=== PATIENT | female | born 1985 | race Two or more races ===

== ENCOUNTER 2020-03-12 11:30 | Emergency (ER) | payer SELFPAY ==
--- NOTE | 2020-03-12 12:30 | ER Document Report ---
ED Medical Screen (RME) - General Chief Complaint: Abdominal Pain Stated Complaint: ABDOMINAL PAIN Time Seen by Provider: 03/12/20 12:20 Mode of Arrival: Wheelchair Information source: Patient Notes: 4-year-old female presented to ED for complaint of "uterus pain x6 months. She states now her ovaries are hurting.. She states her last menstrual period was February 05. She states she is not having any vaginal bleeding at this time. She states she did have a ovarian cyst 3 years ago. She states she does not have any medical or surgical history except for the ovarian cyst. She does not smoke drink or use any illicit drugs. 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 I have greeted and performed a rapid initial assessment of this patient. A comprehensive ED assessment and evaluation of the patient, analysis of test results and completion of medical decision making process will be conducted by an additional ED providers. Physical Exam - Vital signs Vitals: Temp Pulse Resp BP Pulse Ox 97.9 F 72 16 127/62 H 99 03/12/20 11:40 03/12/20 11:40 03/12/20 11:40 03/12/20 11:40 03/12/20 11:40 Course - Vital Signs Vital signs: Temp Pulse Resp BP Pulse Ox 97.9 F 72 16 127/62 H 99 03/12/20 11:40 03/12/20 11:40 03/12/20 11:40 03/12/20 11:40 03/12/20 11:40
[2020-03-12 13:34] LABS: ABSOLUTE EOSINOPHILS # (AUTO) 0.1 10^3/uL (0.0-0.6); ABSOLUTE LYMPHOCYTES (AUTO) 1.9 10^3/uL (0.5-4.7); HEMATOCRIT 42.2 % (36.0-47.0); TOTAL CELLS COUNTED % (AUTO) 100 %
[2020-03-12 13:39] LABS: ABSOLUTE MONOCYTES (AUTO) 0.9 10^3/uL (0.1-1.4); ABSOLUTE NEUT (AUTO) 9.2 10^3/uL (1.7-8.2); BASOPHILS % (AUTO) 0.2 % (0-2); EOSINOPHILS % (AUTO) 0.6 % (0-6); HEMOGLOBIN 14.5 g/dL (12.0-15.5); MEAN CORPUSCULAR HEMOGLOBIN 30.7 pg (27.0-33.4); MEAN CORPUSCULAR HGB CONC 34.3 g/dL (32.0-36.0); MEAN CORPUSCULAR VOLUME 89 fl (80-97); MONOCYTES % (AUTO) 7.1 % (3-13); RED BLOOD COUNT 4.72 10^6/uL (3.72-5.28); RED CELL DISTRIBUTION WIDTH 14.9 % (11.5-14.0); SEGMENTED NEUTROPHILS % (AUTO) 76.1 % (42-78); WHITE BLOOD COUNT 12.1 10^3/uL (4.0-10.5)
[2020-03-12 13:46] LABS: ALBUMIN 5.1 g/dL (3.5-5.0); ALKALINE PHOSPHATASE 72 U/L (38-126); ANION GAP 14 (5-19); ASPARTATE AMINO TRANSFERASE 41 U/L (14-36); BILIRUBIN,DIRECT 0.1 mg/dL (0.0-0.4); BILIRUBIN,TOTAL 1.4 mg/dL (0.2-1.3); BLOOD UREA NITROGEN 8 mg/dL (7-20); CALCIUM 10.3 mg/dL (8.4-10.2); CARBON DIOXIDE 20 mmol/L (22-30); CHLORIDE 104 mmol/L (98-107); GLUCOSE 104 mg/dL (75-110); POTASSIUM 3.8 mmol/L (3.6-5.0); TOTAL PROTEIN 8.5 g/dL (6.3-8.2)
[2020-03-12 14:05] LABS: PLATELET COUNT 249 10^3/uL (150-450)
[2020-03-12 14:12] LABS: APPEARANCE,URINE CLOUDY; BILIRUBIN,URINE NEGATIVE (NEGATIVE); COLOR,URINE YELLOW; GLUCOSE, URINE NEGATIVE (NEGATIVE); KETONES,URINE NEGATIVE (NEGATIVE); LEUKOCYTE ESTERASE,URINE SMALL (NEGATIVE); NITRITE,URINE NEGATIVE (NEGATIVE); PROTEIN,URINE NEGATIVE (NEGATIVE); URINE SPECIFIC GRAVITY 1.013; UROBILINOGEN,URINE NEGATIVE mg/dL (<2.0)
--- NOTE | 2020-03-12 15:30 | RADIOLOGY REPORT (SQ) ---
EXAM DESCRIPTION: U/S OB TRANSVAGINAL W/O DOP IMAGES COMPLETED DATE/TIME: 03/12/2020 3:05 pm REASON FOR STUDY: pelvic pain lmp Feb 05 COMPARISON: None. TECHNIQUE: Transvaginal static and realtime grayscale images acquired of the pelvis. Additional tomás cted spectral and color Doppler images recorded. All images stored on PACs. [facility],740 CLINICAL DATES: LMP 02/06/2020 5 weeks 0 days LIMITATIONS: None. FINDINGS: FETUS: Single Living intrauterine . ULTRASOUND EGA: 5 weeks 5 days by gestational sac size. ULTRASOUND DAVID: 11/07/2020 EFW: Not applicable less than 20 weeks. CRL: pole is not yet seen. FHR: pole is not yet seen. Beats per minute. SURVEY: pole is not yet seen. AMNIOTIC FLUID: Adequate amount. PLACENTA: Not yet developed due to early gestation. SUBCHORIONIC BLEED: No SIZE OF BLEED: Not applicable. UTERUS: No masses. No anomalies. CERVICAL LENGTH: 2.4 cm. Closed. RIGHT ADNEXA: Ovary with normal vascular flow. 3.1 x 3.7 x 2.6 cm. There is a 22 x 25 x 19 mm corpu s luteum. Small amount of free fluid in the right adnexa and in the posterior cul de sac. No adnexal masses. LEFT ADNEXA: Normal ovary with normal vascular flow. 2.9 x 1.8 x 1.6 cm. No adnexal free fluid. No adnexal masses. FREE FLUID: None. OTHER: No other significant finding. IMPRESSION: Intrauterine gestation based upon presence of the gestational sac. pole is not ye t seen. Follow-up as clinically indicated Gestational age 5 weeks 5 days Trimester of : First trimester - 0 to 13 weeks. TECHNICAL DOCUMENTATION: JOB ID: [id number] 2010 [employer]- All Rights Reserved rev-10/26 Reading location - IP/workstation name: [email or web address]
--- NOTE | 2020-03-12 15:46 | ER Document Report ---
ED General - General Chief Complaint: Abdominal Pain Stated Complaint: ABDOMINAL PAIN Time Seen by Provider: 03/12/20 12:20 Mode of Arrival: Wheelchair Information source: Patient Notes: Patient is a 34-year-old female presenting to the emergency department chief complaint of abdominal pain. All information for history of present illness and review of systems was obtained after getting a hold of a paperboard machine operator on the viscose department worker laptop. Patient reports that she has had abdominal pain off and on for about 3 months. Patient denies nausea vomiting travel history trauma history. Patient has no medical issues and denies drugs alcohol or tobacco. When informed that she was the patient seemed quite surprised about same. She states that she has had 1 prior and has 1 living child. TRAVEL OUTSIDE OF THE [place] IN LAST 30 DAYS: No - HPI Onset: Other - Several months Onset/Duration: Intermittent Quality of pain: Achy Severity: Mild Pain Level: 1 Associated symptoms: None Exacerbated by: Denies Relieved by: Denies Similar symptoms previously: No Recently seen / treated by doctor: No - Related Data Allergies/Adverse Reactions: No Known Allergies Allergy (Unverified 03/12/20 12:30) Past Medical History - General Information source: Patient - Social History Smoking Status: Never Smoker Chew tobacco use (# tins/day): No Frequency of alcohol use: None Drug Abuse: None Lives with: Family Family History: None Patient has suicidal ideation: No Patient has homicidal ideation: No Review of Systems - Review of Systems Notes: REVIEW OF SYSTEMS: CONSTITUTIONAL : Denies fever, chills, or sweats. Denies recent illness. EENT: Denies eye, ear, throat, or mouth pain or symptoms. Denies nasal or sinus congestion. CARDIOVASCULAR: Denies chest pain. RESPIRATORY: Denies cough, cold, or chest congestion. Denies shortness of breath, difficulty breathing, or wheezing. GASTROINTESTINAL: Per HPI GENITOURINARY: Denies difficulty urinating, painful urination, burning, fr equency, or blood in urine. MUSCULOSKELETAL: Denies neck or back pain or joint pain or swelling. SKIN: Denies rash or skin lesions. HEMATOLOGIC : Denies easy bruising or bleeding. NEUROLOGICAL: Denies altered mental status or loss of consciousness. Denies headache. Denies weakness or paralysis or loss of use of either side. Denies problems with gait or speech. Denies sensory or motor loss. PSYCHIATRIC: Denies suicidal or homicidal ideations 10 Systems are negative unless otherwise specified above Physical Exam - Vital signs Vitals: Temp Pulse Resp BP Pulse Ox 97.9 F 72 16 127/62 H 99 03/12/20 11:40 03/12/20 11:40 03/12/20 11:40 03/12/20 11:40 03/12/20 11:40 - Notes Notes: PHYSICAL EXAMINATION: GENERAL: Well-appearing, well-nourished and in no acute distress. HEAD: Atraumatic, normocephalic. EYES: Pupils equal round and reactive to light, extraocular movements intact, sclera anicteric, conjunctiva are normal. ENT: nares patent, oropharynx clear without exudates. Moist mucous membranes. NECK: Normal range of motion, supple without lymphadenopathy, no appreciable JVD LUNGS: Lungs clear to auscultation bilaterally and equal. No wheezes rales or rhonchi. HEART: Regular rate and rhythm without murmurs ABDOMEN: Soft, mild tenderness no significant guarding no masses. EXTREMITIES: Active full range of motion, no pitting or edema. No cyanosis. 2+ pulses x4 NEUROLOGICAL: No focal neurological deficits. Moves all extremities spontaneously and on command. SKIN: Warm, Dry, and intact. Normal turgor, no rashes or lesions noted. Course - Re-evaluation Re-evalutation: 03/12/20 18:03 With the assistance of the viscose department worker I was able to speak with the patient inform her of her laboratory and radiologic results. Patient is also found to have a urinary tract infection and will be started on antibiotics per RECRUITER ACCOUNT MANAGER protocol. I discussed with the patient the need to follow-up with RECRUITER ACCOUNT MANAGER and recommend that be accomplished this next week. Patient is agreeable with care plan will be discharged home in stable condition. - Vital Signs Vital signs: Temp Pulse Resp BP Pulse Ox 97.9 F 75 16 124/70 100 03/12/20 11:40 03/12/20 17:06 03/12/20 17:06 03/12/20 17:06 03/12/20 17:06 - Laboratory Result Diagrams: 03/12/20 13:09 03/12/20 13:09 Laboratory results interpreted by me: 03/12/20 03/12/20 03/12/20 13:09 13:09 13:09 WBC 12.1 H RDW 14.9 H Absolute Neuts (auto) 9.2 H Carbon Dioxide 20 L Calcium 10.3 H Total Bilirubin 1.4 H AST 41 H ALT 50 H Total Protein 8.5 H Albumin 5.1 H Beta HCG, Quant 2740.00 H Ur Leukocyte Esterase SMALL H Urine Ascorbic Acid 20 H - Diagnostic Test Radiology reviewed: Reports reviewed Discharge - Discharge Clinical Impression: Abdominal pain Qualifiers: Abdominal location: generalized Qualified Code(s): R10.84 - Generalized abdominal pain Qualifiers: Weeks of gestation: less than 8 weeks Qualified Code(s): Z3A.01 - Less than 8 weeks gestation of UTI (urinary tract infection) Qualifiers: Urinary tract infection type: site unspecified Hematuria presence: without hematuria Qualified Code(s): N39.0 - Urinary tract infection, site not specified Condition: Stable Disposition: HOME, SELF-CARE Instructions: Abdominal Pain ([facility]), Nitrofurantoin ([facility]), Urinary Tract Infection ([facility]) Additional Instructions: URINARY TRACT INFECTION: Your evaluation indicates that you have a urinary tract infection. This is due to germs growing in the bladder. This is a common problem. This infection usually responds quickly to antibiotics. Your antibiotic should be taken exactly as prescribed. Drink plenty of fluids -- three to four quarts a day. Occasionally, a bladder anesthetic will be prescribed to help stop the feeling of urgency until the antibiotic has a chance to clear the infection. This may cause your urine to be dark orange. Certain urine infections require a culture. If the doctor obtained a culture, the results will be back in two days. You should call to see if a change in treatment is needed. A repeat urinalysis after you finish treatment is often recommended. The physician will let you know if further testing is required. Call the doctor if you develop fever, chills, flank pain, inability to urinate, or blood in the urine. ANTIBIOTIC THERAPY: You have been given an antibiotic prescription. It's important that you take all the medication, unless instructed otherwise by your physician. Failure to complete the entire course can result in relapse of your condition. Common side effects of antibiotics include nausea, intestinal cramping, or diarrhea. Women may develop vaginal yeast infections, and babies can get yeast (thrush) in the mouth following the use of antibiotics. Contact your physician if you develop significant side effects from this medication. Allergy to this antibiotic can result in hives, wheezing, faintness, or itching. If symptoms of allergy occur, stop the medication and call the doctor. NITROFURANTOIN (MACRODANTIN, MACROBID): You have received a prescription for nitrofurantoin (Macrodantin). This antibiotic is used for urinary tract infections. Women who are or nursing should notify the physician before taking this medicine. If you have ever had a problem caused by this medication in the past, be sure the physician is aware of it. Common side effects of this medicine include nausea, vomiting, or decreased appetite. Notify your physician if these side effects become severe. Immediately stop this medicine and call the physician if you develop cough, shortness of breath, chest pain, weakness, jaundice (yellow color of the skin and whites of the eyes), or a skin rash. FOLLOW-UP CARE: If you have been referred to a physician for follow-up care, call the physicians office for an appointment as you were instructed or within the next two days. If you experience worsening or a significant change in your symptoms, notify the physician immediately or return to the Emergency Department at any time for re-evaluation. You are . care is best started as early in as possible. If you're unsure about continuing this , you should discuss this with your physician or with sample cutter at [facility]. You should take only medications approved by your physician. Acetaminophen can safely be taken for minor pains. As a rule, medication for chronic conditions such as asthma or seizures can safely be continued. You should discuss with the physician every medicine you take. Any regular exercise program can be continued. Talk to your physician, however, before engaging in competitive or demanding sports. Alcohol, smoking, and "street drugs" are dangerous to your baby. Cocaine is especially dangerous. Don't use any illicit drugs! Prescriptions: Nitrofurantoin Monohyd/M-Cryst [Macrobid 100 mg Capsule] 100 mg PO BID #14 cap Print Language: Ukrainian
[2020-03-12 17:11] VITALS: BP 124/70
== END 2020-03-12 17:05 | disposition home or self-care (01) ==
LOC: ER 11:30
DX: O23.41 Unspecified infection of urinary tract in pregnancy, first trimester (principal); R10.84 Generalized abdominal pain; Z3A.01 Less than 8 weeks gestation of pregnancy
CPT/HCPCS: 36415; 76817; 80053; 81001; 83690; 84702; 85025; 86900; 86901; 87086; 87088; 87186; 99284

== ENCOUNTER 2020-06-11 12:03 | Emergency (ER) | payer SELFPAY ==
[2020-06-11] MEDS ORDERED: ACETAMINOPHEN 325 MG TABLET PO ONE (12:55)
--- NOTE | 2020-06-11 12:56 | ER Document Report ---
ED Medical Screen (RME) - General Chief Complaint: Shortness Of Breath Stated Complaint: HEADACHE Time Seen by Provider: 06/11/20 12:44 Notes: Patient is a 35-year-old female who presents emergency department with a headache to the left side of her face that has been going on for the past week. And this morning she ended up having some shortness of breath. 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 She does not know if she has had any contact with anybody who tested positive for COVID-19. Exam: Breathing equal and unlabored. I have greeted and performed a rapid initial assessment of this patient. A comprehensive ED assessment and evaluation of the patient, analysis of test results and completion of medical decision making process will be conducted by an additional ED providers. TRAVEL OUTSIDE OF THE [place] IN LAST 30 DAYS: No - Related Data Allergies/Adverse Reactions: No Known Allergies Allergy (Unverified 03/12/20 12:30) Physical Exam - Vital signs Vitals: Temp Pulse Resp BP Pulse Ox 98.2 F 69 22 H 128/73 H 98 06/11/20 12:07 06/11/20 12:07 06/11/20 12:07 06/11/20 12:07 06/11/20 12:07 Course - Vital Signs Vital signs: Temp Pulse Resp BP Pulse Ox 98.2 F 69 22 H 128/73 H 98 06/11/20 12:07 06/11/20 12:07 06/11/20 12:07 06/11/20 12:07 06/11/20 12:07
--- NOTE | 2020-06-11 13:21 | RADIOLOGY REPORT (SQ) ---
EXAM DESCRIPTION: CHEST SINGLE VIEW IMAGES COMPLETED DATE/TIME: 06/11/2020 10:11 am REASON FOR STUDY: shortness of breath COMPARISON: None. EXAM PARAMETERS: NUMBER OF VIEWS: One view. TECHNIQUE: Single frontal radiographic view of the chest acquired. RADIATION DOSE: NA LIMITATIONS: None. FINDINGS: LUNGS AND PLEURA: Possible mild interstitial prominence and bronchial wall thickening. No consolidation, pleural effusion, or pneumothorax. MEDIASTINUM AND HILAR STRUCTURES: No masses. Contour normal. HEART AND VASCULAR STRUCTURES: Heart normal in size. Normal vasculature. BONES: No acute findings. HARDWARE: None in the chest. OTHER: No other significant finding. IMPRESSION: Possible mild interstitial prominence and bronchial wall thickening which can be seen wi th bronchitis/viral illness. No dense consolidation. TECHNICAL DOCUMENTATION: JOB ID: [id number] [employer]- All Rights Reserved Reading location - IP/workstation name: [email or web address]
[2020-06-11] MEDS ORDERED: ACETAMINOPHEN 325 MG TABLET ONE (15:20)
[2020-06-11 15:46] LABS: ABSOLUTE EOSINOPHILS # (AUTO) 0.1 10^3/uL (0.0-0.6); ABSOLUTE LYMPHOCYTES (AUTO) 2.3 10^3/uL (0.5-4.7); ABSOLUTE MONOCYTES (AUTO) 0.4 10^3/uL (0.1-1.4); ABSOLUTE NEUT (AUTO) 3.7 10^3/uL (1.7-8.2); BASOPHILS % (AUTO) 0.2 % (0-2); HEMATOCRIT 39.4 % (36.0-47.0); HEMOGLOBIN 13.3 g/dL (12.0-15.5); LYMPHOCYTES % (AUTO) 35.1 % (13-45); MEAN CORPUSCULAR HEMOGLOBIN 29.4 pg (27.0-33.4); MEAN CORPUSCULAR HGB CONC 33.7 g/dL (32.0-36.0); MEAN CORPUSCULAR VOLUME 87 fl (80-97); MONOCYTES % (AUTO) 6.3 % (3-13); PLATELET COUNT 259 10^3/uL (150-450); RED BLOOD COUNT 4.51 10^6/uL (3.72-5.28); RED CELL DISTRIBUTION WIDTH 14.1 % (11.5-14.0); SEGMENTED NEUTROPHILS % (AUTO) 57.4 % (42-78); TOTAL CELLS COUNTED % (AUTO) 100 %; WHITE BLOOD COUNT 6.4 10^3/uL (4.0-10.5)
[2020-06-11 16:04] LABS: ALBUMIN 4.8 g/dL (3.5-5.0); ALKALINE PHOSPHATASE 59 U/L (38-126); ANION GAP 9 (5-19); ASPARTATE AMINO TRANSFERASE 27 U/L (14-36); BILIRUBIN,TOTAL 1.4 mg/dL (0.2-1.3); BLOOD UREA NITROGEN 14 mg/dL (7-20); CALCIUM 9.5 mg/dL (8.4-10.2); CARBON DIOXIDE 24 mmol/L (22-30); CHLORIDE 106 mmol/L (98-107); GLUCOSE 85 mg/dL (75-110); POTASSIUM 3.9 mmol/L (3.6-5.0); TOTAL PROTEIN 8.1 g/dL (6.3-8.2)
--- NOTE | 2020-06-11 16:19 | ER Document Report ---
ED General - General Chief Complaint: Shortness Of Breath Stated Complaint: HEADACHE Time Seen by Provider: 06/11/20 12:44 TRAVEL OUTSIDE OF THE [place] IN LAST 30 DAYS: No - HPI Notes: 35-year-old female presents with a headache. Patient states that she has had a frontal headache which radiates to the left side ongoing for the past week. She states that she takes Tylenol which does help with the headache. Developed some shortness of breath today. 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 No fever, cough, or GI symptoms. - Related Data Allergies/Adverse Reactions: No Known Allergies Allergy (Unverified 03/12/20 12:30) Past Medical History - General Information source: Patient - Social History Smoking Status: Never Smoker Family History: None Review of Systems - Review of Systems Constitutional: denies: Fever EENT: No symptoms reported Cardiovascular: No symptoms reported Respiratory: Short of breath Gastrointestinal: No symptoms reported Genitourinary: No symptoms reported Female Genitourinary: No symptoms reported Musculoskeletal: No symptoms reported Skin: No symptoms reported Hematologic/Lymphatic: No symptoms reported Neurological/Psychological: Headaches Physical Exam - Vital signs Vitals: Temp Pulse Resp BP Pulse Ox 98.2 F 69 22 H 128/73 H 98 06/11/20 12:07 06/11/20 12:07 06/11/20 12:07 06/11/20 12:07 06/11/20 12:07 - General General appearance: Appears well, Alert In distress: None - HEENT Head: Normocephalic, Atraumatic, Other - No tenderness to the temples or frontal/maxillary sinuses Extraocular movements intact: Yes Pupils: PERRL - Respiratory Breath sounds: Normal - Cardiovascular Rhythm: Regular Heart sounds: Normal auscultation - Abdominal Tenderness: Nontender - Extremities General upper extremity: Normal ROM General lower extremity: Normal ROM - Neurological Neuro grossly intact: Yes Cognition: Normal Orientation: AAOx4 Speech: Normal Cranial nerves: Normal Motor strength normal: LUE, RUE, LLE, RLE - Psychological Associated symptoms: Normal affect - Skin Skin Temperature: Warm Course - Re-evaluation Re-evalutation: 35-year-old female with frontal headache x1 week, now with shortness of breath, 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 On exam she is alert and well-appearing, her lungs are clear, she has no gross focal neuro deficits, she is no tenderness to the temples or maxillary/frontal sinuses. She is afebrile, not tachycardic, 98% on room air. She had a chest x-ray done prior to my evaluation which does show some mild bilateral infiltrates. I suspect she likely has Covid, swab has been obtained. Laboratory evaluation was ordered through the triage process. Have ordered Toradol for symptomatic control. 06/11/20 16:46 No leukocytosis or left shift. No acute anemia. ESR is within normal limits. Electrolytes unremarkable. Creatinine within normal limits. LFTs within normal limits. Influenza and strep test negative. Patient feels better and is ready to go home. Return precautions given, stable time of discharge. - Vital Signs Vital signs: Temp Pulse Resp BP Pulse Ox 98.2 F 69 22 H 128/73 H 98 06/11/20 12:07 06/11/20 12:07 06/11/20 12:07 06/11/20 12:07 06/11/20 12:07 - Laboratory Results Result Diagrams: 06/11/20 15:28 06/11/20 15:28 Laboratory Results Interpreted: 06/11/20 06/11/20 15:28 15:28 RDW 14.1 H Total Bilirubin 1.4 H Critical Laboratory Results Reviewed: No Critical Results - Radiology Results Critical Radiology Results Reviewed: No Critical Results Discharge - Discharge Clinical Impression: Person under investigation for COVID-19 Disposition: HOME, SELF-CARE Instructions: COVID-19 Guidance for Persons Under Investigation Additional Instructions: As discussed, it is possible that you may have Covid based on your symptoms and chest x-ray. You should receive results from the swab in about 2 to 3 days. Please stay at home until results are obtained. Use [id number] medicines such as Tylenol, ibuprofen, Mucinex, etc. for symptomatic control. Please start use of a daily multivitamin. Return to the emergency department for any concerning worsening symptoms.
[2020-06-11] MEDS ORDERED: KETOROLAC TROMETHAMINE INJ/PF 30 MG/1 ML SDV IV ONE (16:30)
[2020-06-11 16:42] LABS: A TYPE INFLUENZA AG NEGATIVE (NEGATIVE); B INFLUENZA AG NEGATIVE (NEGATIVE)
[2020-06-11 17:04] VITALS: BP 122/74
== END 2020-06-11 17:05 | disposition home or self-care (01) ==
LOC: ER 12:03
DX: R06.02 Shortness of breath (principal); R51.9 Headache, unspecified; Z20.822 Contact with and (suspected) exposure to COVID-19
CPT/HCPCS: 99284; 96374; 36415; 87070; 87880; 82550; 85025; 85652; 87635; 80053; 87804; 71045; J1885; C9803